=== PATIENT | male | born 1965 | race Caucasian/White ===

== ENCOUNTER 2016-07-26 14:19 | Emergency (ER) | payer OTHER ==
[~2016-07-26] VITALS: Ht 188 cm; Wt 85.0 kg
[2016-07-26 14:27] VITALS: TEMP 97.9
[2016-07-26 16:03] LABS: BASO # 0.1 (0.0-0.2); BASO % 0.4 % (0.0-2.0); EOS # 0.1 (0.0-0.7); EOS % 0.6 % (0-4.0); GRAN # 10.2 (1.4-6.5); GRAN % 87.6 % (42.2-75.2); HEMATOCRIT 41.7 % (42.0-52.0); HEMOGLOBIN 14.8 g/dl (13.5-18.0); LYMPH # 0.8 (1.2-3.4); LYMPH % 6.8 % (20.0-51.0); MEAN CELL VOLUME 94 fl (80.0-100.0); MEAN CORPUSCULAR HEMOGLOBIN 33 pg (27.0-31.0); MEAN CORPUSCULAR HGB CONC 36 g/dl (33.0-37.0); MEAN PLATELET VOLUME 9.1 fl (7.4-10.4); MONO # 0.5 (0.1-0.6); MONO % 4.2 % (1.7-9.3); PLATELET COUNT 168 K/mm3 (130-400); RED BLOOD COUNT 4.45 M/mm3 (4.20-5.60); REDCELL DISTRIBUTION WIDTH-CV 11.9 % (11.5-14.5); WHITE BLOOD COUNT 11.7 K/mm3 (4.8-10.8)
[2016-07-26 16:21] LABS: ADJUSTED CALCIUM 8.2 mg/dL (8.4-10.2); ALBUMIN 4.1 gm/dL (3.5-5.0); BILIRUBIN,TOTAL 0.7 mg/dL (0.0-1.0); CALCIUM 8.3 mg/dL (8.4-10.2); CREATININE, serum 0.77 mg/dL (0.66-1.25); POTASSIUM 4.7 mmol/L (3.4-5.0); TOTAL PROTEIN 7.3 gm/dL (6.4-8.2)
[2016-07-26 20:37] VITALS: BP 102/82; PULSE 86
== END 2016-07-26 20:44 | disposition short-term general hospital (02) ==
LOC: COL.ER 14:19
PROVIDERS: Emergency Medicine
DX: S32.048A Other fracture of fourth lumbar vertebra, initial encounter for closed fracture (principal); S52.572A Other intraarticular fracture of lower end of left radius, initial encounter for closed fracture; S52.612A Displaced fracture of left ulna styloid process, initial encounter for closed fracture; S92.192A Other fracture of left talus, initial encounter for closed fracture; S92.001A Unspecified fracture of right calcaneus, initial encounter for closed fracture; S92.191A Other fracture of right talus, initial encounter for closed fracture; S92.322A Displaced fracture of second metatarsal bone, left foot, initial encounter for closed fracture; S92.332A Displaced fracture of third metatarsal bone, left foot, initial encounter for closed fracture; S92.342A Displaced fracture of fourth metatarsal bone, left foot, initial encounter for closed fracture; S93.125A Dislocation of metatarsophalangeal joint of left lesser toe(s), initial encounter; W13.2XXA Fall from, out of or through roof, initial encounter; Y92.008 Other place in unspecified non-institutional (private) residence as the place of occurrence of the external cause
CPT/HCPCS: J1170; J2405; J7030

== ENCOUNTER 2019-05-22 16:16 | Inpatient (IN) | payer BC ==
[~2019-05-22] VITALS: Ht 188 cm; Wt 178.0 kg
[2019-05-22] VITALS (16 sets, daily range): BP systolic 176; BP diastolic 110; PULSE 92; TEMP 98.4; O2SAT 96–99
[2019-05-22 16:47] LABS: BASO # 0.1 (0.0-0.2); BASO % 1.3 % (0.0-2.0); EOS % 0.7 % (0-4.0); GRAN # 4.1 (1.4-6.5); GRAN % 73.7 % (42.2-75.2); HEMATOCRIT 46.2 % (42.0-52.0); HEMOGLOBIN 16.3 g/dl (13.5-18.0); LYMPH % 17.1 % (20.0-51.0); MEAN CELL VOLUME 95 fl (80.0-100.0); MEAN CORPUSCULAR HEMOGLOBIN 34 pg (27.0-31.0); MEAN CORPUSCULAR HGB CONC 35 g/dl (33.0-37.0); MEAN PLATELET VOLUME 9.2 fl (7.4-10.4); MONO # 0.4 (0.1-0.6); PLATELET COUNT 203 K/mm3 (130-400); RED BLOOD COUNT 4.87 M/mm3 (4.20-5.60); REDCELL DISTRIBUTION WIDTH-CV 11.9 % (11.5-14.5)
[2019-05-22 16:54] LABS: ALANINE AMINOTRANSFERASE 28 U/L (4-49); ALKALINE PHOSPHATASE 92 U/L (50-136); ANION GAP 11 mmol/L (7-16); AST,SGOT 40 U/L (15-37); BILIRUBIN,TOTAL 0.7 mg/dL (0.0-1.0); BLOOD UREA NITROGEN 10 mg/dL (9-20); CALCIUM 9.6 mg/dL (8.4-10.2); CARBON DIOXIDE 28 mmol/L (22-30); CHLORIDE 97 mmol/L (98-107); CREATINE KINASE 106 U/L (55-170); CREATININE, serum 0.75 (0.66-1.25); GLUCOSE 107 mg/dL (74-106); POTASSIUM 4.3 mmol/L (3.4-5.0); SODIUM 136 mmol/L (137-145); TOTAL PROTEIN 8.8 gm/dL (6.4-8.2)
[2019-05-22 17:07] LABS: TROPONIN-I < 0.012 ng/mL (0.000-0.035)
[2019-05-23] VITALS (146 sets, daily range): BP systolic 111–164; BP diastolic 69–112; PULSE 61–78; TEMP 97.3–98.3; O2SAT 94–99
[2019-05-23 08:04] LABS: BASO # 0.1 (0.0-0.2); BASO % 1.1 % (0.0-2.0); EOS # 0.2 (0.0-0.7); EOS % 3.9 % (0-4.0); GRAN # 2.6 (1.4-6.5); GRAN % 60.6 % (42.2-75.2); HEMATOCRIT 43.1 % (42.0-52.0); HEMOGLOBIN 14.9 g/dl (13.5-18.0); LYMPH # 1.1 (1.2-3.4); LYMPH % 24.1 % (20.0-51.0); MEAN CELL VOLUME 96 fl (80.0-100.0); MEAN CORPUSCULAR HEMOGLOBIN 33 pg (27.0-31.0); MEAN CORPUSCULAR HGB CONC 35 g/dl (33.0-37.0); MEAN PLATELET VOLUME 9.2 fl (7.4-10.4); MONO # 0.4 (0.1-0.6); MONO % 10.1 % (1.7-9.3); PLATELET COUNT 180 K/mm3 (130-400); RED BLOOD COUNT 4.47 M/mm3 (4.20-5.60); REDCELL DISTRIBUTION WIDTH-CV 12.1 % (11.5-14.5)
[2019-05-23 08:18] LABS: ALBUMIN 4.1 gm/dL (3.5-5.0); BILIRUBIN,TOTAL 1.1 mg/dL (0.0-1.0); CALCIUM 9.1 mg/dL (8.4-10.2); CHOLESTEROL RISK RATIO 4.1; CREATININE, serum 0.8 (0.66-1.25); TOTAL PROTEIN 7.4 gm/dL (6.4-8.2)
--- NOTE | 2019-05-23 10:09 | NUR ---
pt returned from mri. Pt tolerated well.
--- NOTE | 2019-05-23 15:20 | NUR ---
ATTEMPTED TO CALL REPORT TO JIGAR DUNBAR ON MEDICAL FLOOR. NURSE BUSY AT THIS TIME, UNABLE TO TAKE REPORT. NURSE TO CALL BACK WHEN SHE IS READY FOR REPORT.
--- NOTE | 2019-05-23 15:57 | NUR ---
ATTEMPTED TO CALL JIGAR DUNBAR X 2 WITH NO ANSWER.
--- NOTE | 2019-05-23 16:03 | NUR ---
REPORT CALLED TO JIGAR DUNBAR.
--- NOTE | 2019-05-23 16:12 | NUR ---
PT TRANSFERRED VIA WHEELCHAIR TO MEDICAL ROOM 308. PT'S BELONGINGS TRANSFERRED WITH PATIENT. AT BEDSIDE. CONTACT MADE WITH JIGAR DUNBAR UPON TRANSFER.
--- NOTE | 2019-05-23 21:45 | NUR ---
Resting in bed with at bedside. Assessment complete. Lungs clear. Heart sounds normal. Bowels active x4. Pulses present throughout. No edema noted. INT left AC without complications. Denies pain. Reports mild left shoulder numbness. No limb drift. Staff Trainer equal. Denies any other symptoms. Denies pain. Denies needs. Call light in reach.
[2019-05-24 00:05] VITALS: BP 155/95; PULSE 65; TEMP 98.3
--- NOTE | 2019-05-24 02:17 | NUR ---
Resting in bed with at bedside. Denies needs. Call light in reach.
[2019-05-24 04:42] VITALS: BP 118/74; PULSE 71; TEMP 97.9
--- NOTE | 2019-05-24 06:30 | NUR ---
Patient had uneventful night. Resting in bed this AM. Denies needs. Call light in reach.
--- NOTE | 2019-05-24 07:15 | NUR ---
awake and up and about in room independently, bedside shift report received from MANJINDER Christianson
--- NOTE | 2019-05-24 07:22 | NUR ---
Report given to MANJINDER Reddy
[2019-05-24 07:31] VITALS: BP 138/86; PULSE 71; TEMP 97.8
--- NOTE | 2019-05-24 07:45 | NUR ---
awake resting in bed, full assessment completed, see interventions for further info, no neuro deficit noted, denies pain or needs
[2019-05-24] MEDS ORDERED: LIPITOR 40MG TA40 MG PO (09:18)
[2019-05-24] MEDS ORDERED: ASPIRIN 32325 MG/TAB PO (09:19)
[2019-05-24] MEDS ORDERED: LOPRESSOR 225 MG/TAB PO (09:19)
--- NOTE | 2019-05-24 09:30 | NUR ---
Dr Heredia and care team in to see patient, will plan discharge later today
--- NOTE | 2019-05-24 09:43 | NUR ---
MIAH met with the patient and his , Hallie (ph#[phone]), to discuss discharge plan. The patient lives in [place] with his . He reports independence with ADLs and has a cane available, if needed. The patient's PCP is Dr. Jeremiah Whyte and he receives his medications at [facility]. He reports no difficulties obtaining his meds. The patient and his filled out the DPO[facility] form and would like to have it notarized. MIAH contacted our Shannon. Pam bautista to meet with the patient. The patient plans to return home with his upon discharge. No additional needs at this time.
--- NOTE | 2019-05-24 10:10 | NUR ---
discharge instructions given to patient and his , verbalizes understanding
--- NOTE | 2019-05-24 10:15 | NUR ---
discharged per WC
== END 2019-05-24 10:15 | disposition home or self-care (01) | DRG 66 ==
LOC: COL.ER 16:16 → IMCU 18:20 → MEDICAL 05-23 16:31
PROVIDERS: Emergency Medicine; ADMIT Internal Medicine
DX: I63.81 Other cerebral infarction due to occlusion or stenosis of small artery (principal); I10 Essential (primary) hypertension; F41.9 Anxiety disorder, unspecified; Z72.0 Tobacco use; R20.8 Other disturbances of skin sensation
CPT/HCPCS: 99223-AI; 99232-AI; 99239; A9585; J1650; J2060; J7030

== ENCOUNTER 2021-01-09 10:23 | Outpatient (CLI) | payer OTHER ==
[2021-01-09] VITALS (8 sets, daily range): BP systolic 116–188; BP diastolic 63–75; PULSE 62–69; TEMP 99
[~2021-01-09 10:23] MED LIST: ASPIRIN 32325 MG/TAB PO; LIPITOR 40MG TA40 MG PO; LOPRESSOR 225 MG/TAB PO
[2021-01-09] MEDS ORDERED: ZESTRIL 10MG10 MG PO (12:09)
[2021-01-09] MEDS ORDERED: ZITHROMAX 250M250 MG PO (12:10)
[2021-01-09] MEDS ORDERED: TESSALON PERLE200 MG PO (12:10)
== END 2021-01-09 13:05 | disposition home or self-care (01) ==
LOC: EUO 10:23
DX: U07.1 COVID-19 (principal)
CPT/HCPCS: M0243; Q0244